=== PATIENT | female | born 1985 | race Caucasian/White ===

== ENCOUNTER 2019-03-24 11:32 | Emergency (ER) | payer MEDICAID ==
[~2019-03-24] VITALS: Ht 152.4 cm; Wt 47.0 kg
[~2019-03-24 11:32] MED LIST: CEPH-443 PO
[2019-03-24 12:00] VITALS: BP 116/67; PULSE 103; RESP 16; Ht 152.4 cm; Wt 47.0 kg
== END 2019-03-24 15:02 | disposition home or self-care (01) ==
LOC: FTE 11:32
DX: O20.9 Hemorrhage in early pregnancy, unspecified (principal); O23.41 Unspecified infection of urinary tract in pregnancy, first trimester; Z3A.01 Less than 8 weeks gestation of pregnancy
CPT/HCPCS: 36415; 76801; 76817; 81001; 84702; 85025; 86900; 86901; 87086; Z7502